=== PATIENT | female | born 1965 | race Caucasian/White ===

== ENCOUNTER 2016-12-30 21:43 | Emergency (ER) | payer BC ==
[2016-12-30] MEDS ORDERED: Lidocaine 2% 5 ML SDV INJECT ONE (21:50)
--- NOTE | 2016-12-30 21:53 | EDM.PDOC ---
ED HPI Skin/Rash - General Chief Complaint: Skin Complaint Stated Complaint: CUT Time Seen by Provider: 12/30/16 21:47 Source: Reports: Patient, Family, RN, RN notes reviewed History Limitations: Reports: No limitations - History of Present Illness INITIAL COMMENTS - FREE TEXT/NARRATIVE: Patient presents to the ED at [facility] after she sustained a laceration to the tip of the 5th digit left hand. Patient states she was using a knife for cooking, when the knife slipped and lacerated the finger. Symptom Onset Date: 12/30/16 Symptom Onset Time: 21:15 Timing: Reports: still present Location, Skin: Reports: upper extremity, left Known Identified Source: yes - Related Data Allergies Allergy/AdvReac Type Severity Reaction Status Date / Time Penicillins Allergy Anaphylactic Verified 12/30/16 21:56 Shock Home Meds: Ambulatory Orders Medication Instructions Recorded Confirmed . [No Known Home Meds] 11/15/15 12/30/16 Past Medical History HEENT History: Reports: Otitis media - Past Surgical History HEENT Surgical History: Reports: Myringotomy w tube(s), Other (see below) Other HEENT Surgeries/Procedures: Ear drum surgery Social & Family History - Tobacco Use Smoking Status *Q: Current Every Day Smoker Years of Tobacco use: 25 Packs/Tins Daily: 0.5 ED ROS GENERAL - Review of Systems Review Of Systems: See Below Constitutional: Denies: fever, chills, weakness Respiratory: Denies: Shortness of Breath, Cough Cardiovascular: Denies: Chest pain, Palpitations Skin: Reports: wound (cut to tip of little finger) Neurological: Reports: No Symptoms. Denies: Numbness, Paresthesia, Tingling ED EXAM, SKIN/RASH Exam: See Below Exam Limited By: No limitations General Appearance: alert, no apparent distress Respiratory/Chest: no respiratory distress, lungs clear, normal breath sounds Cardiovascular: regular rate, rhythm Peripheral Pulses: 2+: radial (L), radial (R) Neurological: alert, oriented Skin: Warm, Dry, Normal color, No rash, Wound/incision Location, Skin: upper extremity, left Characteristics: other (laceration to tip of 5th digit left hand) Associated features: tenderness ED SKIN PROCEDURES - Laceration/Wound Repair Left Distal Finger Lac/wound length in cm: 0.8 Appearance: subcutaneous, linear, clean Distal NVT: neuro & vascular intact, no tendon injury Anesthetic type: local Local anesthesia - Lidocaine (Xylocaine): 2% plain Local anesthetic volume: 2cc Skin prep: chlorhexidine (hibiciens), saline Exploration/Debridement/Repair: wound explored, explored to base, no foreign material found, wound margins revised Closed with: sutures Suture size: 4-0 # of sutures: 2 Suture type: interrupted, simple Sterile dressing applied: nurse Tetanus status addressed: Yes Complications: No Course - Vital Signs Last Recorded V/S: Last Vital Signs Temp 35.8 C 12/30/16 21:59 Pulse 77 12/30/16 21:59 Resp 18 12/30/16 21:59 BP 115/82 12/30/16 21:59 Pulse Ox 96 12/30/16 21:59 - Orders/Labs/Meds Orders: Active Orders 24 hr Category Date Time Status Vaccines to be Administered [RC] PER UNIT ROUTINE Care 12/30/16 22:14 Ordered Diphth,Pertuss(Acell),Tet Vac [Adacel] Med 12/30/16 22:14 Once 0.5 ml IM .ONCE ONE Meds: Medications Discontinued Medications Generic Name Dose Route Start Last Admin Trade Name George PRN Reason Stop Dose Admin Lidocaine 5 ml 12/30/16 21:50 12/30/16 21:57 Xylocaine-Mpf 2% INJECT 12/30/16 21:51 5 ml ONETIME ONE Administration Departure - Departure Time of Disposition: 22:14 Disposition: Home, Self-Care 01 Condition: good Clinical Impression: Finger laceration Qualifiers: Encounter type: initial encounter Qualified Code(s): S61.219A - Laceration without foreign body of unspecified finger without damage to nail, initial encounter Instructions: Laceration Care, Adult, Sutured Wound Care Referrals: PCP,None [Primary Care Provider] - Forms: ED Department Discharge Additional Instructions: 1. Keep area clean and dry 2. Leave band aid on at least 24 hours 3. Sutures will need to stay in for 10 days 4. Return to this ER or your Primary in 10 days for a wound recheck and possible suture removal - Problem List Review Problem List Initiated/Reviewed/Updated: Yes - My Orders Last 24 Hours: My Active Orders 12/30/16 22:14 Vaccines to be Administered [RC] PER UNIT ROUTINE Diphth,Pertuss(Acell),Tet Vac [Adacel] 0.5 ml IM .ONCE ONE - Assessment/Plan Last 24 Hours: My Active Orders 12/30/16 22:14 Vaccines to be Administered [RC] PER UNIT ROUTINE Diphth,Priscilla(Acell),Tet Vac [Adacel] 0.5 ml IM .ONCE ONE
[2016-12-30 22:00] VITALS: BP 115/82
[2016-12-30] MEDS ORDERED: Diphtheria,Pertussis(Acell),Tetanus Vaccine 0.5 ML Syringe IM ONE (22:14)
== END 2016-12-30 22:36 | disposition home or self-care (01) ==
LOC: VM.ED 21:43 → SUPCPDRO 21:43 → VM.ED 22:36
DX: S61.217A Laceration without foreign body of left little finger without damage to nail, initial encounter (principal); F17.210 Nicotine dependence, cigarettes, uncomplicated; Z88.0 Allergy status to penicillin; Z23 Encounter for immunization; Z98.890 Other specified postprocedural states; W26.0XXA Contact with knife, initial encounter
CPT/HCPCS: 12001; 90715; 96372; 99282

== ENCOUNTER 2024-03-10 19:50 | Emergency (ER) | payer BC ==
[2024-03-10] MEDS: Bacitracin Oint 1 GM U/D Packet TOP ONE (20:15)
[2024-03-10] MEDS: Take Home: traMADol 50 MG, 4 Tab Pack PO ONE (20:16)
[2024-03-11 01:35] VITALS: BP 168/97; PULSE 75
== END 2024-03-10 20:20 | disposition home or self-care (01) ==
LOC: VM.ED 19:50
DX: T23.252A Burn of second degree of left palm, initial encounter (principal); Z88.0 Allergy status to penicillin; X15.8XXA Contact with other hot household appliances, initial encounter
CPT/HCPCS: 16020; 99283; A9270